=== PATIENT | male | born 1995 | race Caucasian/White ===

== ENCOUNTER 2017-04-08 15:29 | Emergency (ER) | payer SELFPAY ==
[2017-04-08 15:38] VITALS: BP 116/67
--- NOTE | 2017-04-08 16:09 | ED Physician Documentation ---
PD HPI UPPER EXT INJURY - Stated complaint Stated Complaint: R HAND LAC - Chief complaint Chief Complaint: Wound - History obtained from History obtained from: Patient - History of Present Illness Location: Right, Hand (thenar) Type of injury: Laceration Timing - onset: How many days ago (3) Timing - duration: Days (had laceration 3 days ago and noted it having redness and some purulence today.) Timing - details: Gradual onset Worsened by: Palpating Associated symptoms: Swelling, Discolored (red). No: Weakness, Numbness Similar symptoms before: Has not had sx before Recently seen: Not recently seen Review of Systems Constitutional: denies: Fever, Chills Neurologic: denies: Focal weakness, Numbness PD PAST MEDICAL HISTORY - Past Medical History Cardiovascular: None Respiratory: None Endocrine/Autoimmune: None GI: Other : None HEENT: None, Chronic vision loss Psych: ADD/ADHD Musculoskeletal: None, Other Derm: None - Past Surgical History Past Surgical History: No - Present Medications Home Medications: Ambulatory Orders Medication Instructions Recorded Confirmed Mupirocin 1 applic TP TID #15 oint...g. 04/08/17 Sulfamethox/Trimeth 800/160 1 each PO BID #14 tablet 04/08/17 [Bactrim Ds 800/160] - Allergies Allergies/Adverse Reactions: Allergies Allergy/AdvReac Type Severity Reaction Status Date / Time amoxicillin trihydrate * Allergy Hives Verified 04/08/17 15:36 [From Augmentin] ceftriaxone sodium * Allergy Hives Verified 04/08/17 15:36 [From Rocephin] potassium clavulanate * Allergy Hives Verified 04/08/17 15:36 [From Augmentin] - Social History Does the pt smoke?: Yes Smoking Status: Current every day smoker Does the pt drink ETOH?: Yes Does the pt have substance abuse?: Yes - POLST Patient has POLST: No PD ED PE NORMAL - Vitals Vital signs reviewed: Yes - General General: Alert and oriented X 3, No acute distress, Well developed/nourished - Derm Derm: Normal color, Warm and dry, Other (right thenar area with linear superficial lac, with redness and mild swelling. No fluctuance. No fluid under skin by bedside U/S. ) - Neuro Neuro: No motor deficit, No sensory deficit Results - Vitals Vitals: Oxygen O2 Source Room air PD MEDICAL DECISION MAKING - ED course Complexity details: considered differential, d/w patient Departure - Departure Disposition: 01 Home, Self Care Clinical Impression: Laceration of hand with infection Qualifiers: Encounter type: initial encounter Laterality: right Qualified Code(s): S61.411A - Laceration without foreign body of right hand, initial encounter Condition: Stable Record reviewed to determine appropriate education?: Yes Instructions: ED Laceration Infec Not Sutrd Prescriptions: Sulfamethox/Trimeth 800/160 [Bactrim Ds 800/160] 1 each PO BID #14 tablet Mupirocin 1 applic TP TID #15 oint...g. Comments: Cleanse the wound twice a day with soap and water And apply mupirocin antibiotic ointment. Bactrim oral antibiotic twice daily for 4-7 days until the wound looks completely better without redness or swelling. Recheck if not improved over the next few days and sooner if increased redness or swelling as this could potentially need to be drained if pus collects. Less use of the hand today and tomorrow. Tylenol or ibuprofen if needed for pains. Forms: Activity restrictions Discharge Date/Time: 04/08/17 16:45
[2017-04-08] MEDS ORDERED: SULFAMETH/TRIMETH DS 800/160 MG TABLET PO STA (16:26)
[2017-04-08] MEDS ORDERED: MUPIROCIN 2% OINT 1 GM TOP STA (16:26)
[2017-04-08] MEDS ORDERED: MUPIROCIN 2% OINT 1 GM ONE (16:43)
[2017-04-08] MEDS ORDERED: SULFAMETH/TRIMETH DS 800/160 MG TABLET PO ONE (16:43)
== END 2017-04-08 16:45 | disposition home or self-care (01) ==
LOC: ED 15:29
DX: S61.411A Laceration without foreign body of right hand, initial encounter (principal); L08.9 Local infection of the skin and subcutaneous tissue, unspecified; X58.XXXA Exposure to other specified factors, initial encounter; F17.200 Nicotine dependence, unspecified, uncomplicated
CPT/HCPCS: 99283; A9270